=== PATIENT | male | born 1950 | race Native Hawaiian/Other Pacific Islander ===

== ENCOUNTER 2017-02-07 09:35 | Outpatient (CLI) | payer OTHER ==
[2017-02-07 09:47] LABS: PLATELET COUNT 243 K/uL (142-355)
[2017-02-07 12:44] LABS: POTASSIUM 3.6 mmol/L (3.6-5.2)
== END 2017-02-07 19:07 | disposition home or self-care (01) ==
LOC: LABW 09:35
PROVIDERS: Internal Medicine
DX: E11.9 Type 2 diabetes mellitus without complications (principal)
CPT/HCPCS: 36415; 80053; 80061; 81000; 82043; 82570; 83036; 84439; 84443; 85027

== ENCOUNTER 2017-06-30 12:12 | Outpatient (CLI) | payer OTHER | END 2017-06-30 19:16 | disposition home or self-care (01) | LOC: RAD 12:12 | DX: M25.551 Pain in right hip (principal) ==

== ENCOUNTER 2017-09-18 11:34 | Outpatient (CLI) | payer OTHER ==
[2017-09-18 17:41] LABS: POTASSIUM 3.3 mmol/L (3.6-5.2); SODIUM 139 mmol/L (136-145)
== END 2017-09-18 19:21 | disposition home or self-care (01) ==
LOC: LABW 11:34
PROVIDERS: Internal Medicine
DX: E11.9 Type 2 diabetes mellitus without complications (principal); Z12.5 Encounter for screening for malignant neoplasm of prostate
CPT/HCPCS: 36415; 80053; 80061; 83036; 84153; 84550

== ENCOUNTER 2018-08-16 08:43 | Outpatient (CLI) | payer OTHER ==
[2018-08-16 10:31] LABS: PLATELET COUNT 263 K/uL (142-355)
[2018-08-16 10:46] LABS: POTASSIUM 3.6 mmol/L (3.6-5.2)
== END 2018-08-16 20:11 | disposition home or self-care (01) ==
LOC: LABW 08:43
PROVIDERS: Internal Medicine
DX: E11.9 Type 2 diabetes mellitus without complications (principal)
CPT/HCPCS: 36415; 80053; 80061; 81000; 82043; 82570; 83036; 84443; 84550; 85027

== ENCOUNTER 2020-06-30 08:27 | Outpatient (CLI) | payer OTHER ==
[2020-06-30 09:45] LABS: PLATELET COUNT 196 K/uL (142-355)
[2020-06-30 09:47] LABS: POTASSIUM 3.5 mmol/L (3.6-5.2)
== END 2020-06-30 20:22 | disposition home or self-care (01) ==
LOC: LABW 08:27
PROVIDERS: Internal Medicine
DX: E11.9 Type 2 diabetes mellitus without complications (principal)
CPT/HCPCS: 36415; 80053; 80061; 81000; 82043; 82570; 83036; 84439; 84443; 84550; 85027

== ENCOUNTER 2021-01-19 14:11 | Outpatient (CLI) | payer OTHER ==
[2021-01-19 14:22] LABS: PLATELET COUNT 214 K/uL (142-355)
[2021-01-19 14:48] LABS: POTASSIUM 3.7 mmol/L (3.6-5.2)
== END 2021-01-19 21:12 | disposition home or self-care (01) ==
LOC: LAB 14:11
PROVIDERS: ATTEND Internal Medicine
DX: E11.9 Type 2 diabetes mellitus without complications (principal); E79.0 Hyperuricemia without signs of inflammatory arthritis and tophaceous disease; Z12.5 Encounter for screening for malignant neoplasm of prostate; N40.0 Benign prostatic hyperplasia without lower urinary tract symptoms
CPT/HCPCS: 80053; 80061; 81000; 82043; 83036; 84153; 84439; 84443; 84550; 85027

== ENCOUNTER 2021-09-08 08:55 | Outpatient (CLI) | payer OTHER ==
[2021-09-08 09:52] LABS: PLATELET COUNT 221 K/uL (142-355)
[2021-09-08 10:06] LABS: POTASSIUM 3.6 mmol/L (3.6-5.2)
== END 2021-09-08 20:14 | disposition home or self-care (01) ==
LOC: LABW 08:55
PROVIDERS: ATTEND Internal Medicine
DX: E11.9 Type 2 diabetes mellitus without complications (principal)
CPT/HCPCS: 36415; 80053; 80061; 81000; 83036; 84439; 84443; 85027

== ENCOUNTER 2022-05-25 10:00 | Outpatient (CLI) | payer OTHER | END 2022-05-25 19:59 | disposition home or self-care (01) | LOC: LABW 10:00 | PROVIDERS: ATTEND Internal Medicine | DX: R80.8 Other proteinuria (principal) | CPT/HCPCS: 84166 ==

== ENCOUNTER 2022-12-02 12:07 | Outpatient (CLI) | payer OTHER | END 2022-12-02 18:56 | disposition home or self-care (01) | LOC: US 12:07 | PROVIDERS: ATTEND Internal Medicine | DX: M79.605 Pain in left leg (principal) ==

== ENCOUNTER 2023-03-10 10:33 | Outpatient (CLI) | payer OTHER ==
[2023-03-10 11:00] LABS: PLATELET COUNT 201 K/uL (142-355)
[2023-03-10 11:18] LABS: POTASSIUM 3.8 mmol/L (3.6-5.2)
== END 2023-03-10 18:59 | disposition home or self-care (01) ==
LOC: LABW 10:33
PROVIDERS: ATTEND Internal Medicine
DX: E11.9 Type 2 diabetes mellitus without complications (principal); N40.1 Benign prostatic hyperplasia with lower urinary tract symptoms
CPT/HCPCS: 36415; 80053; 80061; 81002; 83036; 84153; 84439; 84443; 85027